=== PATIENT | male | born 1960 ===

== ENCOUNTER 2018-05-18 16:56 | Emergency (ER) | payer OTHER ==
[~2018-05-18] VITALS: Ht 167.6 cm; Wt 69.9 kg
[~2018-05-18 16:56] MED LIST: CIPRO500 MG PO; FLAGYL500MG PO; INTESTINEX1 CA1 PO
[2018-05-18] MEDS ORDERED: TIVICAY50 MG (17:06)
[2018-05-18] MEDS ORDERED: PREZCOBIX 8001 EACH (17:06)
[2018-05-18] MEDS ORDERED: STIOLTO RESPIMAT4 GM (17:07)
[2018-05-19] MEDS ORDERED: FLAGYL500MG PO (09:12)
[2018-05-19] MEDS ORDERED: ZANTAC300 MG PO (09:12)
[2018-05-19] MEDS ORDERED: CIPRO500 MG PO (09:12)
[2018-05-19] MEDS ORDERED: INTESTINEX680 M1 PO (09:12)
== END 2018-05-19 09:46 ==
LOC: ER 16:56
DX: K52.89 Other specified noninfective gastroenteritis and colitis (principal)

== ENCOUNTER 2018-07-05 11:35 | Emergency (ER) | payer OTHER ==
[~2018-07-05] VITALS: Ht 177.8 cm; Wt 67.1 kg
[~2018-07-05 11:35] MED LIST changes: +INTESTINEX680 M1 PO; +PREZCOBIX 8001 EACH; +STIOLTO RESPIMAT4 GM; +TIVICAY50 MG; +ZANTAC300 MG PO
== END 2018-07-05 19:45 | disposition home or self-care (01) ==
LOC: ER 11:35
DX: K52.89 Other specified noninfective gastroenteritis and colitis (principal)